=== PATIENT | female | born 1945 | race Caucasian/White ===

== ENCOUNTER → 2018-03-25 07:24 | Outpatient (CLI) | payer OTHER, SELFPAY ==
--- NOTE | 2018-03-28 14:18 | EEG ---
- Electroencephalogram Date of service 03/25/2018 This is an 18 channel electroencephalogram performed utilizing the [employer] 10-20 electrode placement protocol on this 72-year-old female with a history of seizures. Background activity is 9 Hz symmetrically in the posterior leads which attenuates with eye opening. Hyperventilation is performed for 4 minutes with good effort with no lateralizing or epileptiform changes. The patient remained awake throughout the recording without lateralizing or epileptiform changes. EKG is normal sinus rhythm throughout the recording and photic stimulation generates a normal symmetric driving response in the posterior leads. Impression: Normal awake electroencephalogram.
== END ==
PROVIDERS: Family Provider Family Medicine; PCP Family Medicine; Referring Provider Family Medicine; Visit Provider Family Medicine
DX: G40.A09 Absence epileptic syndrome, not intractable, without status epilepticus (principal)